=== PATIENT | male | born 1955 | race Caucasian/White ===

== ENCOUNTER 2017-07-25 18:45 | Emergency (ER) | payer SELFPAY ==
[2017-07-25 19:15] LABS: ABSOLUTE BASOPHIL COUNT 0 /CUMM (0.0-0.2); ABSOLUTE EOSINOPHIL COUNT 0.1 /CUMM (0.0-0.7); ABSOLUTE GRANULOCYTE CT 3.9 /CUMM (1.4-6.5); ABSOLUTE LYMPH COUNT 4.6 /CUMM (1.2-3.4); ABSOLUTE MONOCYTE COUNT 0.7 /CUMM (0.10-0.60); BASOPHIL % 0.4 % (0.0-2.0); HEMATOCRIT 32.1 % (42-52); MEAN CORPUSCULAR HGB 29.2 PG (27.0-31.0); MEAN CORPUSCULAR HGB CONC 32.8 G/DL (33.0-37.0); MEAN CORPUSCULAR VOLUME 89.2 FL (80.0-94.0); MEAN PLATELET VOLUME 8.8 FL (7.4-10.4); PLATELET COUNT 255 /CUMM (130-400); RBC DISTRIBUTION WIDTH 14.1 % (11.5-14.5); WHITE BLOOD CELL COUNT 9.3 /CUMM (4.8-10.8)
[2017-07-25 19:16] LABS: GRANULOCYTE % 42.1 % (42.2-75.2)
--- NOTE | 2017-07-25 19:22 | ED GENERAL ADULT ---
History of Present Illness General Chief Complaint: Altered Mental Status Stated Complaint: BIBA, AMS Source: family, old records, EMS Exam Limitations: clinical condition Vital Signs & Intake/Output Vital Signs & Intake/Output Vital Signs Date Time Temp Pulse Resp B/P B/P Pulse O2 O2 Flow FiO2 Mean Ox Delivery Rate 07/25 1942 100 Allergies Coded Allergies: prochlorperazine (UNKNOWN 07/25/17) Triage Nurses Notes Reviewed? yes HPI: 911 was called when his upstairs neighbor heard banging. His neighbor checked on him and found him very confused thing on. Upon EMS arrival patient was very computed confused and combative. Patient required restraints. Patient was pulling a cart at the restraints that he was tearing his skin so the patient was given Versed. Patient was brought to the emergency department for evaluation. Upon arrival in the emergency department patient was unresponsive with agonal respirations and a nonpalpable blood pressure. Patient did have a carotid pulse. Patient was intubated and sent over to CAT scan with the nurse. A triple was inserted as soon as he got back. (Kateryna GRIFFIN,Hector Tripathi) Past History Travel History Traveled to [place] past 21 day No Medical History Any Pertinent Medical History? see below for history Cardiovascular: hypertension, hyperlipidemia Influenza Vaccine: 03/08/09 Surgical History Surgical History: non-contributory Psychosocial History What is your primary language Lithuanian Tobacco Use: Cognitive Impairment ETOH Use: heavy use Illicit Drug Use: UNKNOWN Family History Hx Contributory? No (Kateryna GRIFFIN,Hector Tripathi) Review of Systems Review of Systems Constitutional: Reports: see HPI. (Kateryna GRIFFIN,Hector Tripathi) Physical Exam Physical Exam General Appearance: severe distress Head: atraumatic Eyes: Bilateral: other (PINPOINT). Ears, Nose, Throat: normal ENT inspection Neck: supple, NO JVD Respiratory: lungs clear, decreased breath sounds, AGONAL Cardiovascular: regular rate/rhythm, CAROTID PULSE PALPABLE Peripheral Pulses: 2+ carotid (R), 2+ carotid (L), 0 radial (R), 0 radial (L), 0 femoral (R), 0 femoral (L), 0 tibialis posterior (R), 0 tibialis posterior (L), 0 dorsalis pedis (R), 0 dorsalis pedis (L) Gastrointestinal: soft, abnormal bowel sounds (DECREASED) Back: normal inspection Extremities: no edema Neurologic/Psych: UNRESPONSIVE Skin: cyanosis, mottled Core Measures ACS in differential dx? Yes CVA/TIA Diagnosis: No Sepsis Present: Yes Sepsis Focused Exam Completed? Yes (Kateryna GRIFFIN,Hector Tripathi) ED Sepsis Exam Date of Focused Sepsis Exam: 07/25/17 Time of Focused Sepsis Exam: 1958 Sepsis Cardiac Exam: Tachycardia Sepsis Resp Exam: CTA (WITH VENTILATOR) Sepsis Cap Refill Exam: <2 Sec Sepsis Peripheral Pulse Exam: Weak Sepsis Peripheral Pulse Location: FEMORAL Sepsis Skin Color Exam: Cyanotic Skin Temp/Moisture Exam: Cool/Dry (Hector Avendaño MD) Progress Differential Diagnoses I considered the following diagnoses in my evaluation of the patient: Diagnostic Imaging: Viewed by Me: CT Scan. Discussed w/RAD: CT Scan. Radiology Impression: PATIENT: ELIDA SOLORIO PRESENT AGE: 61 PATIENT ACCOUNT NO: [id number] : 55 LOCATION: [facility] ORDERING PHYSICIAN: Hector Avendaño MD SERVICE DATE: 07/25/17-1918 EXAM TYPE: CAT - CT CERV SPINE WO IV CONTRAST; CT HEAD WO IV CONTRAST EXAMINATIONS: CT HEAD WITHOUT CONTRAST AND CT CERVICAL SPINE WITHOUT CONTRAST CLINICAL INFORMATION: Found confused and combative. Unresponsive. COMPARISON: 10/27/2013. TECHNIQUE: Contiguous helical images of the brain were obtained without IV contrast. Contiguous helical images of the cervical spine were obtained without IV contrast. Multiplanar reconstructions were performed. DLP: 992 mGy-cm. FINDINGS: There are no pathologic extra-axial fluid collections. The lateral, third, fourth ventricles are nondilated and concordant with the appearance of the sulci. There is no evidence for acute intraparenchymal hemorrhage or infarct. There is neither mass nor mass effect. There is no shift of midline structures. There is mild mucosal thickening to the left maxillary sinus. The paranasal sinuses and mastoid air cells are otherwise clear. There are no osseous lesions. The cervical vertebra are in normal alignment. Disc heights and vertebral heights are well-preserved. There are no fractures. There is no prevertebral soft tissue swelling. The endotracheal tube is in place and partially visualized. There is no cervical lymphadenopathy. The visualized lung apices are clear. IMPRESSION: No evidence for acute intracranial injury. No evidence for acute injury to the cervical spine. 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 < Electronically signed in Other Vendor System> SIGNED BY: Lui Adam MD 07/25/171958 Initial ED EKG: WIDE COMPLEX WITH ISCHEMIC CHANGES. Rhythm Strip: sinus tachycardia Comments: Surgery was consult did however while I was on the phone with him and the patient went into cardiac arrest. 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 07/26 1919 Active URINE DRUGS OF ABUSE 07/25 1904 Complete URINALYSIS 07/25 1904 Complete TROPONIN LEVEL 07/25 1901 Complete LIPASE 07/25 1901 Complete LACTIC ACID 07/25 1901 Complete ETHANOL 07/25 1901 Complete COMPREHENSIVE METABOLIC PANEL 07/25 1901 Complete CREATINE PHOSPHOKINASE 07/25 1901 Complete CBC WITHOUT DIFFERENTIAL 07/25 1901 Complete AMYLASE 07/25 1901 Complete Current Medications Sig/Clark Start time Last Medication Dose Stop Time Status Admin Amiodarone HCl/ 300 MG ONCE ONE 07/25 2129 UNVr Dextrose 07/25 2145 (Nexterone) N/A 1 UNIT (No Carrier) Epinephrine 1 MG ONCE ONE 07/25 2129 UNVr (Epi Kit (1 MG Per 07/25 2130 10 Ml) Inj) Epinephrine 1 MG ONCE ONE 07/25 2129 UNVr (Epi Kit (1 MG Per 07/25 2130 10 Ml) Inj) Epinephrine 1 MG ONCE ONE 07/25 2129 UNVr (Epi Kit (1 MG Per 07/25 2130 10 Ml) Inj) Epinephrine 1 MG ONCE ONE 07/25 2129 UNVr (Epi Kit (1 MG Per 07/25 2130 10 Ml) Inj) Epinephrine 1 MG ONCE ONE 07/25 2129 UNVr (Epi Kit (1 MG Per 07/25 2130 10 Ml) Inj) Magnesium Sulfate 2 GM ONCE ONE 07/25 2129 UNVr (Mag Sulfate in D5) 07/26 128 Dextrose/Water 100 ML (D5W) Potassium Chloride 20 MEQ ONCE ONE 07/25 2129 UNVr 07/25 2130 Sodium Bicarbonate 50 MEQ ONCE ONE 07/25 2129 UNVr (Sodium Bicarbonate 07/25 2130 8.4% Syringe) Norepinephrine 4 MG ONCE ONE 07/25 1929 UNir 07/25 (Levophed Drip) 07/25 Sodium Chloride 250 ML (Normal Saline 0.9%) Laboratory Tests 07/25/17 2017: Ammonia 316 H 07/25/171906: Urine Opiates Screen < 100, Methadone Screen < 40, Barbiturate Screen < 60, Ur Phencyclidine Scrn < 6.00, Amphetamines Screen < 100, U Benzodiazepines Scrn 340 H, Urine Cocaine Screen < 50, Urine Cannabis Screen < 5.00, Urinalysis MOD H, Urine Color STRAW, Urine Clarity CLDY H, Urine pH 6.0, Ur Specific [place] 1.015, Urine Protein 100 H, Urine Ketones NEG, Urine Nitrite NEG, Urine Bilirubin NEG, Urine Urobilinogen 0.2, Ur Leukocyte Esterase SMALL H, Ur Microscopic SEDIMENT EXAMINED, Urine RBC 15-25 H, Urine WBC 10-15 H, Ur Epithelial Cells MANY H, Urine Hemoglobin MOD H, Urine Glucose NEG 07/25/171901: Anion Gap 30 H, Estimated GFR 44 L, BUN/Creatinine Ratio 7.5, Glucose 298 H, Lactic Acid 17.9 H, Calcium 8.1 L, Total Bilirubin 0.6, AST 43, ALT 48, Alkaline Phosphatase 44, Creatine Kinase 347 H, Troponin I 0.04, Total Protein 5.1 L, Albumin 2.8 L, Globulin 2.3, Albumin/Globulin Ratio 1.2, Amylase 49, Lipase 196, CBC w Diff NO MAN DIFF REQ, RBC 3.60 L, MCV 89.2, MCH 29.2, MCHC 32.8 L, RDW 14.1, MPV 8.8, Gran % 42.1 L, Lymphocytes % 49.0, Monocytes % 7.5, Eosinophils % 1.0, Basophils % 0.4, Absolute Granulocytes 3.9, Absolute Lymphocytes 4.6 H, Absolute Monocytes 0.7 H, Absolute Eosinophils 0.1, Absolute Basophils 0, Serum Alcohol < 10.0 Microbiology 07/25 1921 URINE ROUT: Urine Culture - ORD 07/25 1921 BLOOD: Blood Culture - ORD 07/25 1921 BLOOD: Blood Culture - ORD (Orville Mina) Departure Departure Disposition: Condition: Stable Clinical Impression Primary Impression: Cardiac arrest Secondary Impressions: Hemoperitoneum, Hepatic encephalopathy, Mesenteric hematoma, Septic shock Referrals: Unknown (PCP/Family) Departure Forms: Customer Survey General Discharge Information (Hector Avendaño MD) Procedures Intubation Intubation Method: orotracheal Tube Size (cm): 8.0 Medications: succinylcholine Breath Sounds After Intubation: equal Intubation Complications: no complications Post Intubation Xray? Yes (CT SCAN) (Hector Avendaño MD) Central Line Central Line Lumen: triple Central Line Procedure: Yes: sterile drapes applied, sterile dressing applied. No: bentadine prep? ( chlorhexidine). Central Line Position: femoral (R) Complications: none Central Line Post Position: sutured, good blood return (Orville Mina) Critical Care Note Critical Care Note Critical Care Time: mins: (120 MIN) Total CPR Time (mins): 24 (Hector Avendaño MD)
--- NOTE | 2017-07-25 19:59 | CT SCAN REPORT ---
EXAMINATIONS: CT HEAD WITHOUT CONTRAST AND CT CERVICAL SPINE WITHOUT CONTRAST CLINICAL INFORMATION: Found confused and combative. Unresponsive. COMPARISON: 10/27/2013. TECHNIQUE: Contiguous helical images of the brain were obtained without IV contrast. Contiguous helical images of the cervical spine were obtained without IV contrast. Multiplanar reconstructions were performed. DLP: 992 mGy-cm. FINDINGS: There are no pathologic extra-axial fluid collections. The lateral, third, fourth ventricles are nondilated and concordant with the appearance of the sulci. There is no evidence for acute intraparenchymal hemorrhage or infarct. There is neither mass nor mass effect. There is no shift of midline structures. There is mild mucosal thickening to the left maxillary sinus. The paranasal sinuses and mastoid air cells are otherwise clear. There are no osseous lesions. The cervical vertebra are in normal alignment. Disc heights and vertebral heights are well-preserved. There are no fractures. There is no prevertebral soft tissue swelling. The endotracheal tube is in place and partially visualized. There is no cervical lymphadenopathy. The visualized lung apices are clear. IMPRESSION: No evidence for acute intracranial injury. No evidence for acute injury to the cervical spine.
[2017-07-25 20:21] VITALS: BP 62/0
--- NOTE | 2017-07-25 20:30 | CT SCAN REPORT ---
EXAMINATION: CT ABDOMEN AND PELVIS WITHOUT CONTRAST CLINICAL INFORMATION: Trauma. Unresponsive. COMPARISON: CT abdomen and pelvis the kidney 03/14/2012. TECHNIQUE: Multidetector volumetric imaging was performed from the superior aspect of the liver through the pubic symphysis. Sagittal and coronal reformatted images were obtained on the technologist's workstation. DLP: 857 mGy-cm FINDINGS lack of IV contrast restricts CHEST: LUNGS: The lungs are well-expanded with a dependent bibasilar atelectasis. No lung contusion or consolidation seen. PLEURA: There is no pneumothorax, pleural effusion or pleural thickening. MEDIASTINUM: The thyroid lobes are somewhat symmetrical and normal. An endotracheal tube tip 3 cm above robert. There is no mediastinal mass, hematoma lymph nodes. The heart size and the great vessels are normal caliber. AXILLA: No abnormal injury mass, lymph nodes. The chest wall appears unremarkable except for a left chest wall lipoma measuring 4.3 x 2.8 cm. OSSEOUS STRUCTURES: There is no visible rib fracture or vertebral bony abnormality. ABDOMEN AND PELVIS: LIVER, GALLBLADDER, AND BILIARY TREE: The liver is normal in size, shape, and decreased attenuation, likely fatty liver. No focal hepatic lesion or biliary ductal dilatation is present. The gallbladder is unremarkable with no evidence of radiopaque gallstones, gallbladder wall thickening, or obvious pericholecystic inflammatory changes. There is mild perihepatic and perisplenic hyperdensity likely hemorrhage. PANCREAS: Unremarkable. SPLEEN: Unremarkable. ADRENAL GLANDS: Unremarkable. KIDNEYS AND URETERS: The kidneys are normal in size, shape, and attenuation. No hydronephrosis, hydroureter, or calculi seen. No perinephric stranding. A 2.2 cm lesion midpole right kidney likely complex cyst. BLADDER: A Gibbs catheter lies within the bladder without any distention. There is iatrogenic air. GASTROINTESTINAL TRACT: The visualized colon and the small bowel loops are unremarkable. There is diffuse mesenteric haziness in the midabdomen likely mesenteric contusion with hyper dense areas scattered within the mesentery in mid abdomen likely hematoma measuring 69 Hounsfield units. There is a right paracolic gutter hypodensity measuring 1.9 x 1.4 cm and -2 Hounsfield units, axial image 82, series 2 likely old seroma from previous trauma 07/03/2011. In the right lower abdomen there is a hypodense area adjacent to the small bowel loops and inferior to cecum measuring 35 Hounsfield units likely intraperitoneal hematoma. However there is no free fluid in the pelvis. ABDOMINAL WALL: No hernia or abdominal wall contusion seen.. LYMPH NODES: Normal. VASCULAR: No retroperitoneal hematoma seen. The aorta is normal caliber. PELVIC VISCERA: Unremarkable. OSSEOUS STRUCTURES: Unremarkable. IMPRESSION: Bibasilar dependent atelectasis. No consolidation, lung contusion, or pleural effusion or pneumothorax seen. There is no visible rib fractures seen either. The endotracheal tube tip is in good position. Gibbs's catheter lies within an empty bladder. Diffuse mesenteric haziness and hyperdense fluid collection in mid abdomen and right lower quadrant consistent with hemoperitoneum. There is some perihepatic and perisplenic hemorrhage as well. No hepatic or liver contusion seen. No retroperitoneal bleed seen. There is no free air or any evidence for bowel obstruction. There is a small hypodense collection right paracolic gutter likely old seroma from 2011. Likely fatty liver Results communicated to Dr. Avendaño in ED by phone at 8:20 PM.
== END 2017-07-25 23:35 | disposition expired ==
LOC: ERH 18:45
PROVIDERS: Emergency Medicine
DX: I46.9 Cardiac arrest, cause unspecified (principal); A41.9 Sepsis, unspecified organism; R65.21 Severe sepsis with septic shock; K66.1 Hemoperitoneum; K72.90 Hepatic failure, unspecified without coma; S36.892A Contusion of other intra-abdominal organs, initial encounter; X58.XXXA Exposure to other specified factors, initial encounter
CPT/HCPCS: 1344; 1387; 1409; 74176; 80307; 81001; 86920; 87040; 87086; 93005; 93010; 94799; 96374; 96375; 99291; G0480; J0330; J0713; J1265; J2060; J2310; J3370; J7040